=== PATIENT | female | born 1980 | race African-American/Black ===

== ENCOUNTER 2023-09-07 08:30 | Emergency (ER) | payer MEDICAID ==
[~2023-09-07] VITALS: Ht 167.6 cm; Wt 75.0 kg
[2023-09-07 08:39] VITALS: BP 133/106; O2SAT 100
[2023-09-07] MEDS ORDERED: MECLIZINE 25MG TABLET PO ONE (08:45)
[2023-09-07 09:11] LABS: BASOPHILS % 0.5 % (0.0-2.0); EOSINOPHILS % 2.3 % (0.0-5.0); HEMATOCRIT. 43.6 % (36.0-48.0); HEMOGLOBIN. 14.7 g/dL (12.0-16.0); LYMPHOCYTES % 32.7 % (20.0-50.0); MEAN CORPUSCULAR HGB CONC 33.8 g/dL (31.0-37.0); MEAN CORPUSCULAR VOLUME 94.8 fL (81.0-99.0); MONOCYTES % 9.2 % (2.0-8.0); NEUTROPHILS % 55.3 % (40.0-76.0); RED CELL DISTRIBUTION WIDTH 13.1 % (11.6-14.6); WHITE BLOOD COUNT 5.6 x1000/uL (4.5-11.0)
[2023-09-07 09:24] LABS: DIFFERENTIAL COMMENT 1
[2023-09-07 10:04] LABS: COLOR URINE YELLOW (YELLOW)
[2023-09-07 10:05] LABS: CLARITY URINE SL HAZY (CLEAR); GLUCOSE URINE NEGATIVE (NEGATIVE); PH URINE 6.5 (4.5-8.0); PROTEIN URINE NEGATIVE (NEGATIVE); SPECIFIC GRAVITY URINE <1.005 (1.005-1.030)
[2023-09-07 10:06] LABS: KETONES URINE 2+ (NEGATIVE)
[2023-09-07 10:12] LABS: LEUKOCYTE ESTERASE URINE 1+ (NEGATIVE); NITRITE URINE NEGATIVE (NEGATIVE); OCCULT BLOOD URINE 1+ (NEGATIVE); UROBILINOGEN URINE 0.2 E.U./dL (0.2-1.0)
[2023-09-07 10:17] LABS: BACTERIA URINE 2+; RBC URINE 0-2 /hpf (0-2); SQUAMOUS EPITHELIAL CELL URINE 1+ /lpf (RARE/1+)
[2023-09-07 10:18] LABS: YEAST URINE NONE SEEN
[2023-09-07 10:43] LABS: ALANINE AMINOTRANSFERASE 36 IU/L (10-49); ALBUMIN 4.6 g/dL (3.2-4.8); ASPARTATE AMINOTRANSFERASE 31 IU/L (<34); BILIRUBIN TOTAL 1.1 mg/dL (0.1-1.0); CALCIUM 9.7 mg/dL (8.7-10.4); CARBON DIOXIDE 24 mEq/L (21-32); CHLORIDE 99 mEq/L (98-107); CREATININE 0.8 mg/dL (0.6-1.0); GLUCOSE 76 mg/dL (70-105); POTASSIUM 2.9 mEq/L (3.5-5.1); PROTEIN TOTAL 7.6 g/dL (6.0-8.3); SODIUM 135 mEq/L (136-145)
[2023-09-07 10:44] LABS: TROPONIN I HIGH SENSITIVITY < 4 ng/L (3.0-34); UREA NITROGEN BLOOD < 5 mg/dL (9-23)
[2023-09-07] MEDS ORDERED: POTASSIUM CHLORIDE 20MEQ TABLET SR PO NR (11:15)
[2023-09-07] MEDS ORDERED: AMOX1TAB16 MT (11:31)
[2023-09-07] MEDS ORDERED: MECL-299 MT (11:31)
[2023-09-07] MEDS ORDERED: POTA-354 MT (11:31)
[2023-09-07 11:44] VITALS: PULSE 72; RESP 18; TEMP 97.9
== END 2023-09-07 11:45 | disposition home or self-care (01) ==
LOC: ER 08:30
DX: H81.399 Other peripheral vertigo, unspecified ear (principal); E87.6 Hypokalemia; Z90.49 Acquired absence of other specified parts of digestive tract
CPT/HCPCS: 99285; 70450; 71045; 80053; 81003; 81025; 82962; 85025; 84484; 36415; 93005; J8597

== ENCOUNTER 2024-01-26 11:27 | Emergency (ER) | payer MEDICAID ==
[~2024-01-26] VITALS: Ht 175.3 cm; Wt 82.0 kg
[~2024-01-26 11:27] MED LIST: AMOX1TAB16 MT; MECL-299 MT; POTA-354 MT
[2024-01-26 11:32] VITALS: BP 149/105; PULSE 83; RESP 16; TEMP 98.8; O2SAT 100
[2024-01-26 11:49] LABS: BASOPHILS % 0.7 % (0.0-2.0); DIFFERENTIAL COMMENT 0; EOSINOPHILS % 1.3 % (0.0-5.0); HEMOGLOBIN. 14.8 g/dL (12.0-16.0); LYMPHOCYTES % 38.9 % (20.0-50.0); MEAN CORPUSCULAR HEMOGLOBIN 33.2 pg (28.0-32.0); MEAN CORPUSCULAR HGB CONC 34.3 g/dL (31.0-37.0); MEAN CORPUSCULAR VOLUME 96.9 fL (81.0-99.0); MEAN PLATELET VOLUME 8.4 fl (7.4-10.4); MONOCYTES % 5.6 % (2.0-8.0); NEUTROPHILS % 53.5 % (40.0-76.0); PLATELET 312 x1000/uL (130-400); RED BLOOD CELL COUNT 4.44 mill/uL (4.2-5.4); RED CELL DISTRIBUTION WIDTH 13.3 % (11.6-14.6); WHITE BLOOD COUNT 5.1 x1000/uL (4.5-11.0)
[2024-01-26 12:06] LABS: ALANINE AMINOTRANSFERASE 14 IU/L (10-49); ALBUMIN 4.6 g/dL (3.2-4.8); ASPARTATE AMINOTRANSFERASE 25 IU/L (<34); BILIRUBIN TOTAL 0.6 mg/dL (0.1-1.0); CALCIUM 8.5 mg/dL (8.7-10.4); CARBON DIOXIDE 21 mEq/L (21-32); CHLORIDE 108 mEq/L (98-107); CREATININE 0.8 mg/dL (0.6-1.0); GLUCOSE 85 mg/dL (70-105); POTASSIUM 3.7 mEq/L (3.5-5.1); SODIUM 136 mEq/L (136-145); UREA NITROGEN BLOOD 6 mg/dL (9-23)
[2024-01-26] MEDS ORDERED: MAGNESIUM/ALUMINUM HYDROXIDE/SIMETHICONE 30ML UDC PO STA (13:01)
[2024-01-26] MEDS ORDERED: ONDANSETRON 4MG ODT PO STA (13:01)
[2024-01-26] MEDS ORDERED: FAMOTIDINE 20MG TABLET PO ONE (13:15)
[2024-01-26 14:58] LABS: HCG SCREEN NEGATIVE
[2024-01-26] MEDS: FAMOTIDINE 20MG TABLET PO NR (15:50)
[2024-01-26] MEDS: MAGNESIUM/ALUMINUM HYDROXIDE/SIMETHICONE 30ML UDC PO NR (15:50)
[2024-01-26] MEDS: ONDANSETRON 4MG ODT PO NR (15:50)
[2024-01-26] MEDS ORDERED: MAG-55 MT (16:43)
[2024-01-26] MEDS ORDERED: FAMO-135 MT (16:43)
[2024-01-26 17:19] LABS: CLARITY URINE CLEAR (CLEAR); COLOR URINE DARK YELLOW (YELLOW); GLUCOSE URINE NEGATIVE (NEGATIVE); NITRITE URINE NEGATIVE (NEGATIVE); OCCULT BLOOD URINE NEGATIVE (NEGATIVE); PROTEIN URINE NEGATIVE (NEGATIVE); SPECIFIC GRAVITY URINE 1.022 (1.005-1.030)
[2024-01-26 17:20] LABS: KETONES URINE 1+ (NEGATIVE); LEUKOCYTE ESTERASE URINE TRACE (NEGATIVE)
[2024-01-26 17:35] LABS: BACTERIA URINE 1+; RBC URINE 0-2 /hpf (0-2); SQUAMOUS EPITHELIAL CELL URINE 1+ /lpf (RARE/1+); WBC URINE 0-2 /hpf (0-2)
== END 2024-01-26 19:06 | disposition home or self-care (01) ==
LOC: ER 11:27
DX: R11.2 Nausea with vomiting, unspecified (principal); Z90.49 Acquired absence of other specified parts of digestive tract; Z98.51 Tubal ligation status
CPT/HCPCS: 99284; 80053; 81003; 81025; 84703; 83690; 85025; 36415; Q0162

== ENCOUNTER 2024-03-26 15:54 | Emergency (ER) | payer MEDICAID ==
[~2024-03-26] VITALS: Ht 175.3 cm; Wt 77.1 kg
[~2024-03-26 15:54] MED LIST changes: +FAMO-135 MT; +MAG-55 MT
[2024-03-26 16:02] VITALS: BP 171/111; PULSE 82; RESP 16; TEMP 98.4; O2SAT 100
[2024-03-26 16:57] LABS: CLARITY URINE CLEAR (CLEAR); COLOR URINE DARK YELLOW (YELLOW); GLUCOSE URINE NEGATIVE (NEGATIVE); KETONES URINE NEGATIVE (NEGATIVE); LEUKOCYTE ESTERASE URINE TRACE (NEGATIVE); NITRITE URINE NEGATIVE (NEGATIVE); OCCULT BLOOD URINE NEGATIVE (NEGATIVE); PROTEIN URINE NEGATIVE (NEGATIVE); SPECIFIC GRAVITY URINE 1.022 (1.005-1.030)
[2024-03-26 18:25] LABS: BACTERIA URINE TRACE; RBC URINE NONE SEEN /hpf (0-2); SQUAMOUS EPITHELIAL CELL URINE NONE SEEN /lpf (RARE/1+); WBC URINE NONE SEEN /hpf (0-2)
== END 2024-03-26 16:59 | disposition left against medical advice (07) ==
LOC: ER 15:54
DX: R07.89 Other chest pain (principal); Z53.21 Procedure and treatment not carried out due to patient leaving prior to being seen by health care provider
CPT/HCPCS: 81003; 93005

== ENCOUNTER 2024-10-08 04:08 | Emergency (ER) | payer MEDICAID ==
[~2024-10-08] VITALS: Ht 175.3 cm; Wt 84.0 kg
[2024-10-08 04:20] VITALS: O2SAT 99
[2024-10-08 04:22] VITALS: BP 157/88; PULSE 104; RESP 16; TEMP 98.3; O2SAT 100
[2024-10-08] MEDS ORDERED: AZIT250T12 MT (05:12)
[2024-10-08] MEDS ORDERED: IBUP-2029 MT (05:12)
== END 2024-10-08 05:30 | disposition home or self-care (01) ==
LOC: ER 04:08
DX: R05.9 Cough, unspecified (principal); Z90.49 Acquired absence of other specified parts of digestive tract; Z98.51 Tubal ligation status; Z79.899 Other long term (current) drug therapy
CPT/HCPCS: 71045; 99283